=== PATIENT | male | born 1980 | race African-American/Black ===

== ENCOUNTER 2017-07-21 04:42 | Emergency (ER) | payer SELFPAY ==
[~2017-07-21] VITALS: Ht 188 cm; Wt 117.9 kg
[2017-07-21] MEDS ORDERED: IBUPROFEN 400 MG TAB PO ONE (05:00)
[2017-07-21 05:15] LABS: STREPTOCOCCUS GRP A ANTIGEN NEGATIVE (NEGATIVE)
[2017-07-21 05:23] LABS: INFLUENZAE A&B ANTIGEN (RAPID) POSITIVE FLU A&B (NEGATIVE)
[2017-07-21 05:35] VITALS: BP 132/76
== END 2017-07-21 05:41 | disposition home or self-care (01) ==
LOC: ER 04:42
DX: R50.9 Fever, unspecified (principal); J11.1 Influenza due to unidentified influenza virus with other respiratory manifestations; J31.0 Chronic rhinitis
CPT/HCPCS: 83518; 87070; 87400; 99283